=== PATIENT | male | born 1960 | race Caucasian/White ===

== ENCOUNTER 2016-04-21 08:43 | Emergency (ER) | payer OTHER ==
[~2016-04-21] VITALS: Ht 175.3 cm; Wt 91.0 kg
[~2016-04-21 08:43] MED LIST: ALLO300T46 PO; DOCU-144 PO; IND20 PO; MULT-761 PO; ULT50 PO
[2016-04-21 08:44] VITALS: Ht 175.3 cm; Wt 91.0 kg
--- NOTE | 2016-04-21 10:12 | RADRPT ---
PROCEDURE: XR Ankle. CLINICAL INDICATION: Left ankle pain. Left ankle injury. TECHNIQUE: Three views of the left ankle were performed. COMPARISON: None. FINDINGS: The osseous structures, articular spaces, and surrounding soft tissues are all unremarkable. Swellin g and edema along the lateral peripheral soft tissues of the left ankle is identified. No acute frac ture or dislocation is seen. No radiopaque foreign body is identified. Tiny plantar calcaneal spur is identified. IMPRESSION: 1. Lateral soft tissue swelling and edema. 2. No underlying bony fracture or dislocation is identified. 3. Tiny plantar calcaneal spur. RPTAT: HMJB .Jesus Fountain MD, MD Date Time Electronically viewed and signed by .Jesus Fountain MD, on 04/21/2016 10:11 .B/
--- NOTE | 2016-04-21 10:26 | RADRPT ---
PROCEDURE: XR bilateral feet. CLINICAL INDICATION: Bilateral foot pain. TECHNIQUE: Three views of each foot. Frontal, oblique, and lateral. Total of six views. COMPARISON: None. FINDINGS: There is no fracture or dislocation. The soft tissues are normal. Articular surfaces are intact. There is no lytic or blastic lesion. There is no radiopaque foreign body. IMPRESSION: 1. Normal images of the bilateral feet. RPTAT: QQ .Elliot Jack MD, MD Date Time Electronically viewed and signed by .Elliot Jack MD, on 04/21/2016 10:25 .R/
[2016-04-21] MEDS ORDERED: IBUP-1542 PO (10:58)
--- NOTE | 2016-04-21 11:05 | ERD ---
ER Documentation Chief Complaint Date/Time DATE: 04/21/16 TIME: 11:02 Chief Complaint ANKLE PAIN/INJURY HPI 55-year-old male with a past medical history of leukemia, cirrhosis, presents to the ED complaining of a left ankle injury that he sustained yesterday. States that he was trying to get off the RV and accidentally slipped and fell. Denies any fever, chills, loss of sensation, loss of range of motion, weakness, numbness or tingling, headache. Denies any head or neck injuries. Denies any other injuries. ROS All systems reviewed and are negative except as per history of present illness. Medications Home Meds Active Scripts Ibuprofen* (Motrin*) 600 Mg Tab, 600 MG PO Q6, #30 TAB take with food Prov:SIMEON MADERA PA-C 04/21/16 Reported Medications Propranolol Hcl* (Inderal*) 20 Mg Tab, 10 MG PO DAILY 10/05/12 Docusate Sodium* (Colace*) 100 Mg Capsule, 100 MG PO BID 10/05/12 Allopurinol* (Zyloprim*) 300 Mg Tablet, 300 MG PO DAILY 10/05/12 Multivitamin (MULTI VITAMIN DAILY) 1 Each Tablet, 1 EACH PO 09/14/12 Tramadol HCl (Tramadol HCl) 50 Mg Tablet, 50 MG PO DAILY 05/05/12 Allergies Allergies: Coded Allergies: No Known Allergies (Verified Allergy, Unknown, 07/27/14) PMhx/Soc History of Surgery: Yes (appendectomy ) Anesthesia Reaction: No Hx Neurological Disorder: No Hx Respiratory Disorders: No Hx Cardiac Disorders: No Hx Psychiatric Problems: No Hx Miscellaneous Medical Probl: Yes (leukemia, cirrhosis) Hx Alcohol Use: Yes Hx Substance Use: No Hx Tobacco Use: No Smoking Status: Never smoker Physical Exam Vitals Vital Signs Date Time Temp Pulse Resp B/P Pulse Ox O2 Delivery O2 Flow Rate FiO2 04/21/16 08:44 97.5 71 18 148/70 98 Physical Exam Const: Hqf-iip-izoxvdieu, well-nourished. In no acute distress. Head: Atraumatic, normocephalic Eyes: Normal Conjunctiva without injection ENT: Normal external ear, nose and mouth. Neck: Full range of motion. No meningismus. Resp: Clear to auscultation bilaterally. No wheezing, rhonchi, rales, or crackles. No accessory muscle use. No retractions. Cardio: Regular rate and rhythm, no murmurs Skin: No petechiae or rashes Back: No midline tenderness. No CVA tenderness. Ext: No cyanosis, or edema. Edema noted over the left lateral malleolus. Tenderness to palpation of the left lateral malleolus. Tenderness to palpation of the right great toe. No edema, erythema, warmth to touch of the right great toe. Cap refill less than 2 seconds. Distal pulses intact bilaterally. Neur: Awake and alert. Normal gait and coordination. Muscle strength 5/5. Sensation intact bilaterally. Psych: Normal Mood and Affect Procedures/MDM This is a 55-year-old male with a past medical history of leukemia, cirrhosis presents the ED complaining of a left ankle injury. Patient is afebrile and nontoxic-appearing. Patient has normal vital signs. This time a bilateral feet , left ankle x-ray was ordered to further evaluate patient. Patient denied wanting any pain medications at this time. PROCEDURE: XR Ankle. CLINICAL INDICATION: Left ankle pain. Left ankle injury. TECHNIQUE: Three views of the left ankle were performed. COMPARISON: None. FINDINGS: The osseous structures, articular spaces, and surrounding soft tissues are all unremarkable. Swelling and edema along the lateral peripheral soft tissues of the left ankle is identified. No acute fracture or dislocation is seen. No radiopaque foreign body is identified. Tiny plantar calcaneal spur is identified. IMPRESSION: 1. Lateral soft tissue swelling and edema. 2. No underlying bony fracture or dislocation is identified. 3. Tiny plantar calcaneal spur. PROCEDURE: XR bilateral feet. CLINICAL INDICATION: Bilateral foot pain. TECHNIQUE: Three views of each foot. Frontal, oblique, and lateral. Total of six views. COMPARISON: None. FINDINGS: There is no fracture or dislocation. The soft tissues are normal. Articular surfaces are intact. There is no lytic or blastic lesion. There is no radiopaque foreign body. IMPRESSION: 1. Normal images of the bilateral feet. Patient is placed in a left Jarett wrap. Crutches were given to patient to help with ambulation. Splint Assessment: Neurovascularly intact pre and post Jarett wrap placement with good fit. Patient likely sustained a left ankle sprain. Patient's extremity symptoms have stabilized while they have been evaluated in the department and are appropriate for outpatient follow up. No evidence of fractures, dislocations, compartment syndrome, neurologic injury, vascular injury, open joint, open fracture, tendon laceration, septic arthritis, osteomyelitis, DVT, foreign body , or other emergent conditions. Discharge medications: Ibuprofen Follow up with primary care physician in 1-2 days. Instructed patient to return to the ED sooner for any worsening symptoms. Patient's questions were answered. Patient understood and agreed with discharge plan. Patient discharged stable. Departure Diagnosis: Primary Impression: Ankle injury Encounter type: initial encounter Laterality: left Qualified Code: S99.912A - Ankle injury, left, initial encounter Condition: Stable Patient Instructions: Treating Ankle Sprains, Self-Care for Strains and Sprains Referrals: [facility] YOU HAVE RECEIVED A MEDICAL SCREENING EXAM AND THE RESULTS INDICATE THAT YOU DO NOT HAVE A CONDITION THAT REQUIRES URGENT TREATMENT IN THE EMERGENCY DEPARTMENT. FURTHER EVALUATION AND TREATMENT OF YOUR CONDITION CAN WAIT UNTIL YOU ARE SEEN IN YOUR DOCTORS OFFICE WITHIN THE NEXT 1-2 DAYS. IT IS YOUR RESPONSIBILITY TO MAKE AN APPOINTMENT FOR FOLOW-UP CARE. IF YOU HAVE A PRIMARY DOCTOR --you should call your primary doctor and schedule an appointment IF YOU DO NOT HAVE A PRIMARY DOCTOR YOU CAN CALL OUR PHYSICIAN REFERRAL HOTLINE AT IF YOU CAN NOT AFFORD TO SEE A PHYSICIAN YOU CAN CHOSE FROM THE FOLLOWING [facility] [address] [facility]. [facility] [address] [facility]. [facility] [address] [facility] [address] [facility] [address] [facility]. [facility]. [address] [facility]. [facility] YOU HAVE RECEIVED A MEDICAL SCREENING EXAM AND THE RESULTS INDICATE THAT YOU DO NOT HAVE A CONDITION THAT REQUIRES URGENT TREATMENT IN THE EMERGENCY DEPARTMENT. FURTHER EVALUATION AND TREATMENT OF YOUR CONDITION CAN WAIT UNTIL YOU ARE SEEN IN YOUR DOCTORS OFFICE WITHIN THE NEXT 1-2 DAYS. IT IS YOUR RESPONSIBILITY TO MAKE AN APPOINTMENT FOR FOLOW-UP CARE. IF YOU HAVE A PRIMARY DOCTOR --you should call your primary doctor and schedule and appointment IF YOU DO NOT HAVE A PRIMARY DOCTOR YOU CAN CALL OUR PHYSICIAN REFERRAL HOTLINE AT . IF YOU CAN NOT AFFORD TO SEE A PHYSICIAN YOU CAN CHOSE FROM THE FOLLOWING [facility] INSTITUTIONS: [facility] [address] [place] [address] [facility] [address] [place] [address] [facility] [address] [place] [address] [facility] 7 a.m.- 11 p.m. Every Day of the Week NO APPOINTMENT OR AUTHORIZATION NEEDED SO [facility] Hours: Mon-Fri 9:00 AM - 5:00 PM Additional Instructions: FOLLOW UP WITH YOUR PRIMARY CARE PHYSICIAN TOMORROW.Return to this facility if you are not improving as expected. SIMEON MADERA PA-C Apr 21, 2016 11:05
[2016-04-21 11:32] VITALS: BP 142/86; PULSE 83; RESP 16; TEMP 97.5
== END 2016-04-21 11:32 | disposition home or self-care (01) ==
LOC: E/R 08:43
DX: S99.912A Unspecified injury of left ankle, initial encounter (principal); W17.89XA Other fall from one level to another, initial encounter; Y92.9 Unspecified place or not applicable
CPT/HCPCS: 73610; 73630; Z7502

== ENCOUNTER 2016-07-23 09:31 | Day surgery (SDC) | payer OTHER ==
[~2016-07-23] VITALS: Ht 175.3 cm; Wt 87.0 kg
[2016-07-23] VITALS (13 sets, daily range): BP systolic 110–126; BP diastolic 59–77; PULSE 64–96; RESP 16–23; Ht 175.3 cm; Wt 87.0 kg
[~2016-07-23 09:31] MED LIST changes: +DESFLURANE 15 MIN ONE; +IBUP-1542 PO; +ROCURONIUM 50 MG INJ ONE; +TRAM50TA2 PO; -ULT50 PO
[2016-07-23] MEDS ORDERED: ASPI-664 PO (09:59)
[2016-07-23] MEDS ORDERED: CEFAZOLIN 2 GM/50 ML (PMX) 50 ML IVPB ONE (10:00)
[2016-07-23] MEDS ORDERED: SOD CHLORIDE 0.9% 1,000 ML IV SCH (10:00)
--- NOTE | 2016-07-23 10:22 | RADRPT ---
PROCEDURE: XR Chest. CLINICAL INDICATION: Preoperative, inguinal hernia TECHNIQUE: Single frontal view of the chest was obtained COMPARISON: 09/16/2012 FINDINGS: The heart and mediastinum are within normal limits. The lungs are clear. There is no pleural effusion or pneumothorax. RPTAT: AA IMPRESSION: No acute disease. .Jac Peña MD, MD Date Time Electronically viewed and signed by .Jac Peña MD, on 07/23/2016 10:22 .S/
[2016-07-23 10:37] LABS: ADD SCAN DIFF NO
[2016-07-23 10:45] LABS: ABNORMAL IP MESSAGE 1; BASOPHILS % 0.6 % (0.0-2.0); EOSINOPHILS # 0.2 10^3/ul (0.0-0.5); EOSINOPHILS % 4.9 % (0.0-7.0); HEMOGLOBIN 17.3 g/dl (14.0-18.0); LYMPHOCYTES # 0.7 10^3/ul (0.8-2.9); LYMPHOCYTES % 21.9 % (15.0-51.0); MEAN CORPUSCULAR HEMOGLOBIN 34.8 pg (29.0-33.0); MEAN CORPUSCULAR VOLUME 96.6 fl (82.0-101.0); MEAN PLATELET VOLUME 9.6 fl (7.4-10.4); MONOCYTE # 0.2 10^3/ul (0.3-0.9); MONOCYTES % 5.2 % (0.0-11.0); NEUTROPHIL # 2.2 10^3/ul (1.6-7.5); NEUTROPHILS % 67.1 % (39.0-77.0); PLATELET COUNT 83 10^3/UL (140-415); RED BLOOD COUNT 4.97 10^6/ul (4.70-6.10); RED CELL DISTRIBUTION WIDTH 13.4 % (11.5-14.5); WHITE BLOOD COUNT 3.2 10^3/ul (4.8-10.8)
[2016-07-23 10:50] LABS: INR 1.14; PROTIME 14.6 Sec (12.2-14.2); PT RATIO 1.1
[2016-07-23 10:51] LABS: CALCIUM 9.3 mg/dl (8.4-10.2); CREATININE 0.71 mg/dl (0.61-1.24); PARTIAL THROMBOPLASTIN TIME 30.6 Sec (25.0-35.0); POTASSIUM 3.9 mmol/L (3.5-5.1)
[2016-07-23] MEDS ORDERED: MIDAZOLAM 1 MG/ML 2 ML INJ ONE (11:10)
[2016-07-23] MEDS ORDERED: METOCLOPRAMIDE 10 MG INJ ONE (11:10)
[2016-07-23] MEDS ORDERED: PROPOFOL 20 ML ONE (11:10)
[2016-07-23] MEDS ORDERED: NEOSTIGMINE 3 MG/3 ML SYRINGE ONE ×2 (11:25→13:44)
[2016-07-23] MEDS ORDERED: GLYCOPYRROLATE 0.4 MG INJ ONE ×2 (11:25→13:44)
[2016-07-23] MEDS ORDERED: METHYLENE BLUE 1% 10 ML INJ ONE (11:41)
[2016-07-23] MEDS ORDERED: BUPIVACAINE 0.5%/EPI (SDV) 30 ML INJ ONE (12:01)
[2016-07-23] MEDS ORDERED: POLYMYXIN/BACITRACIN 1L IRRIG ONE (12:01)
[2016-07-23] MEDS ORDERED: BUPIVACAINE 0.5%/EPI (SDV) 30 ML INJ INJ ONE (12:15)
[2016-07-23] MEDS ORDERED: CEFAZOLIN 1 GM INJ ONE (12:25)
[2016-07-23] MEDS ORDERED: HYDROmorphONE 2 MG/ML SYG ONE (12:50)
[2016-07-23] MEDS ORDERED: ROPIVACAINE 0.2% 20 ML VIAL ONE (13:28)
[2016-07-23] MEDS ORDERED: LIDOCAINE 2% (SDV) 5 ML INJ ONE (13:29)
[2016-07-23] MEDS ORDERED: ONDANSETRON 4 MG INJ IV PRN (14:00)
--- NOTE | 2016-07-23 14:03 | OPR ---
DATE OF OPERATION: 07/23/2016 PREOPERATIVE DIAGNOSIS: Incarcerated right inguinal hernia. POSTOPERATIVE DIAGNOSIS: Incarcerated right inguinal hernia. OPERATION PERFORMED: Right inguinal herniorrhaphy with mesh. ANESTHESIA: General. ANESTHESIOLOGIST: Dr. Recinos. SURGEON: Phil Ramsey MD. FIELD OPERATOR: None. INDICATIONS FOR PROCEDURE: The patient is a 56-year-old male who presented with a longstanding inca rcerated right inguinal hernia. He was counseled as to the risks versus benefits of repair. He con sented and was scheduled for surgery. DESCRIPTION OF PROCEDURE: The patient was brought to the operating theater, placed under general en dotracheal tube anesthesia. The right groin was shaved, prepped and draped in usual sterile fashion . Approximately 5 to 6 cm incision was made in the right groin transversing the approximate locatio ns of the internal and external inguinal rings. Subcutaneous tissue was dissected with cautery down to the aponeurosis of the external oblique. The aponeurosis was incised in the direction of the fi bers through the external ring. A very large hernia was visualized, attached to the cord structures . The cord was elevated off the right pubic tubercle. The hernia appeared to be a direct inguinal hernia. It was meticulously dissected off the cord structures and reduced with a gloved finger. An onlay mesh patch was then cut to size, laid over the inguinal floor while the hernia was held in re duction, and it was sutured laterally to the inguinal ligament with a running 2-0 Prolene suture. A small slot was cut on the lateral side to facilitate cord transgression. Additional sutures were t hen placed above the slot. The medial side was then also sutured to the abdominal wall fascia with a running 2-0 Prolene suture. A few final interrupted sutures were placed at the top to secure the superior portion of the mesh. The wound was irrigated. Minimal bleeding was controlled with cauter y. The testicle was palpated and found to be in its normal anatomic location within the right scrot um. The aponeurosis of the external oblique was then reapproximated with a running 3-0 Vicryl sutur e in the standard fashion. The wound was irrigated with Betadine and the skin incision was reapprox imated with skin viral. Patient tolerated procedure well. ESTIMATED BLOOD LOSS: 30 mL. COMPLICATIONS: There were no complications. DISPOSITION: The patient was then transported in stable condition to the recovery room. Dictated By: PHIL RAMIRES/ALESHA Conf#: [id number] DID#: [id number]
[2016-07-23] MEDS: morphine 2 MG INJ IV PRN ×3 (14:14→21:43)
[2016-07-23] MEDS: D5W-0.45 NACL + KCL 20 MEQ 1,000 ML IV SCH (15:32)
[2016-07-23] MEDS ORDERED: OXYCODONE/ACETAMINOPHEN (5/325) TAB PO PRN (17:30)
[2016-07-23] MEDS ORDERED: ACETAMINOPHEN 500 MG TAB PO PRN (17:30)
--- NOTE | 2016-07-23 17:47 | HP ---
DATE OF ADMISSION: 07/23/2016 CHIEF COMPLAINT AND HISTORY OF PRESENT ILLNESS: The patient is a 56-year-old gentleman with history of leukemia, currently in remission; alcoholic liver cirrhosis. Was seen by Dr. Ramsey as an outpat ient for right inguinal hernia. The patient was taken to OR and underwent a right inguinal hernia r epair. The patient did have significant postoperative pain; therefore, the patient is being admitte d for further evaluation and management. The patient denied any chest pain. No shortness of breath . No recent bleeding from any site. No hematemesis. No melena. No reported focal weakness. No h istory of headache, dizziness, syncope. REVIEW OF SYSTEMS: Other than postoperative pain, the rest of review of systems were unremarkable. PAST MEDICAL HISTORY: As stated above. FAMILY HISTORY: Noncontributory. ALLERGIES: NONE. SOCIAL HISTORY: No smoking. The patient has history of heavy alcohol abuse in the past and was bhumi gnosed with liver cirrhosis in 2004. Subsequently, he quit drinking. PHYSICAL EXAMINATION GENERAL: The patient is conscious, awake, alert, fairly oriented. VITAL SIGNS: Temperature 98.6, pulse 69, respirations 18, blood pressure 125/73, O2 saturation 98% on room air. HEENT: Conjunctivae and lids normal. Oropharynx clear. NECK: Supple. No mass, no thyromegaly. LUNGS: Clear to auscultation. CARDIOVASCULAR: S1, S2 normal. No murmur. ABDOMEN: Soft, nontender. EXTREMITIES: No leg edema. Pedal pulses palpable. NEUROLOGIC: Awake, alert, with no gross focal deficit. LABORATORIES: WBC 3.2, hemoglobin 17.3, platelets 83. Sodium 140, potassium 3.9, BUN 13, creatinin e 0.7, glucose 96. CHEST X-RAY: Unremarkable. IMPRESSION 1. Right inguinal hernia, status post repair. 2. Alcoholic cirrhosis of the liver. 3. History of leukemia, currently in remission. PLAN: The patient admitted on medical floor. Patient was started on a clear liquid diet, advance a s tolerated. Patient will be given IV fluids, Tylenol, Percocet and IV morphine for pain control. I will add SCDs for DVT prophylaxis. If patient continues to do well, he will be discharged home to [place] after clearance from ____ . Dictated By: DAYAMI CONLEY/ALESHA Conf#: [id number] DID#: [id number]
[2016-07-24] VITALS: BP 123/69; PULSE 70; RESP 18
[2016-07-24] MEDS: D5W-0.45 NACL + KCL 20 MEQ 1,000 ML IV SCH ×2 (00:31→08:27)
[2016-07-24] MEDS: morphine 2 MG INJ IV PRN ×4 (00:45→08:21)
[2016-07-24 08:40] VITALS: BP 110/57; RESP 18
[2016-07-24] MEDS ORDERED: HYDROCODONE/APAP (10/325) TAB PO PRN (11:00)
--- NOTE | 2016-07-24 17:48 | PDOCDIS ---
Discharge Instructions CONDITION Patient Condition: Stable HOME CARE INSTRUCTIONS: Special Diet: soft diet ACTIVITY: Activity Restrictions: Slowly Increase Activity Rest between Activity Avoid heavy lifting Do not operate Machinery Do not operate Power Tool Avoid Heavy Housework FOLLOW UP/APPOINTMENTS Appointments FU with Primary MD X 1 WEEK FU with Surgery as recommended Call 911 or go to the nearest hospital if symptoms get worse. Patient verbalized understanding discharge instructions. dw patient /staff/md. ZAIN QUEEN Jul 24, 2016 17:48
[2016-07-24] MEDS ORDERED: DOCU-144 PO (17:50)
[2016-07-24] MEDS ORDERED: Hydrocodone/Apap (10/325) PO (17:50)
[2016-07-24] MEDS ORDERED: PANT40TA3 PO (17:50)
--- NOTE | 2016-07-24 17:51 | DS ---
Date/Time of Note Date/Time of Note DATE: 07/24/16 TIME: 17:51 Discharge Summary Admission/Discharge Info Admit Date/Time Jul 23, 2016 at 18:17 Discharge Date/Time Home Meds Active Scripts Docusate Sodium* (Colace*) 100 Mg Capsule, 100 MG PO BID, #30 CAP Prov:ZAIN QUEEN 07/24/16 Pantoprazole* (Protonix*) 40 Mg Tablet.dr, 40 MG PO DAILY, #20 TAB Prov:ZAIN QUEEN 07/24/16 [Hydrocodone/Apap (10325)] 1 TAB TAB No Conflict Check, 1 TAB PO Q6H Y for PAIN LEVEL 6-10, #20 Prov:ZAIN QUEEN 07/24/16 Reported Medications Aspirin (Low Dose Aspirin) 81 Mg Tablet.dr, 81 MG PO DAILY, #30 TAB 07/23/16 Discontinued Reported Medications Propranolol Hcl* (Inderal*) 20 Mg Tab, 10 MG PO DAILY 10/05/12 Docusate Sodium* (Colace*) 100 Mg Capsule, 100 MG PO BID 10/05/12 Allopurinol* (Zyloprim*) 300 Mg Tablet, 300 MG PO DAILY 10/05/12 Multivitamin (MULTI VITAMIN DAILY) 1 Each Tablet, 1 EACH PO 09/14/12 Tramadol HCl (Tramadol HCl) 50 Mg Tablet, 50 MG PO DAILY 05/05/12 Discontinued Scripts Ibuprofen* (Motrin*) 600 Mg Tab, 600 MG PO Q6, #30 TAB take with food Prov:SIMEON MADERA PA-C 04/21/16 ZAIN QUEEN Jul 24, 2016 17:51
--- NOTE | 2016-07-24 20:57 | RADRPT ---
Vent Rate: 59 bpm RR Interval: 0 msec ME Interval: 178 msec QRS Duration: 74 msec QT Interval: 430 msec QTC Interval: 425 msec P-R-T [place]: 51 - 52 - 53 degrees Sinus bradycardia Otherwise normal ECG Electronically Signed By: Lm Arthur [id number]
== END 2016-07-24 18:39 | disposition home or self-care (01) ==
LOC: SDS 09:31 → PP2 15:25 → MS2 18:17 → PP2 18:34
PROVIDERS: ADMIT Surgery Surgical Oncology; ATTEND Surgery Surgical Oncology
DX: K40.30 Unilateral inguinal hernia, with obstruction, without gangrene, not specified as recurrent (principal); C95.91 Leukemia, unspecified, in remission; K70.30 Alcoholic cirrhosis of liver without ascites; F10.20 Alcohol dependence, uncomplicated
CPT/HCPCS: 49507; 71010; 80048; 85025; 85610; 85730; 93005; 96361; 96374; 96376; C1781; J0690; J1170; J2250; J2270; J2405; J2765; J2795; J3480; Z7500; Z7512; Z7610; G0378; J2710

== ENCOUNTER 2017-10-04 09:10 | Day surgery (SDC) | END 2017-10-04 11:03 | disposition home or self-care (01) ==